=== PATIENT | female | born 1975 | race Caucasian/White ===

== ENCOUNTER 2021-08-19 12:32 | Outpatient (REF) | payer BC, SELFPAY ==
[2021-08-19 19:33] LABS: Abs Immature Grans 0.06 10^3/uL (0.0-0.06); Basophils % 0.3; Eosinophils % 0.7; HCT 37.8 % (36.0-46.0); HGB 12.2 g/dL (11.2-15.7); Immature Grans % 0.4; Lymphocytes % 10.2; MCH 29.4 pg (27.0-33.0); MCHC 32.3 % (32.0-36.0); MCV 91.1 fL (80-95); MPV 9.2 fL (8.0-11.0); Monocytes % 6.1; Neutrophils % 82.3; Nucleated RBC 0 %; Platelet Count 436 10^3/uL (130-400); RBC 4.15 10^6/uL (3.93-5.22); RDW 12.6 % (11.7-14.6); RDW-SD 42.2 fL; WBC 15.15 10^3/uL (4.4-10.8)
[2021-08-19 19:38] LABS: Absolute Basophil Count 0.05 10^3/uL (0.0-0.2); Absolute Eosinophil Count 0.11 10^3/uL (0.0-0.7); Absolute Lymphocyte Count 1.55 10^3/uL (1.2-3.4); Absolute Monocyte Count 0.92 10^3/uL (0.1-0.8); Absolute Neutrophil Count 12.47 10^3/uL (1.2-6.7)
[2021-08-19 19:40] LABS: ESR 33 mm/hr (0-20)
[2021-08-19 20:16] LABS: Anion Gap 9.7 mmol/L (3-11); BUN 13 mg/dL (7-18); CO2 28.3 mmol/L (21.0-32.0); CREATININE 0.8 mg/dL (0.55-1.02); Calcium 9.2 mg/dL (8.5-10.1); Chloride 102 mmol/L (98-107); Glucose 97 mg/dL (74-106); Potassium 4.3 mmol/L (3.5-5.1); Sodium 140 mmol/L (136-145)
[2021-08-20 16:52] LABS: Rheumatoid Factor 9.6 IU/mL (<12.0)
[2021-08-23 11:20] LABS: Lyme Ab w Rflx to Lyme Confirm Positive (Negative)
[2021-08-23 13:46] LABS: Lyme IgG Ab Negative (Negative); Lyme IgM Ab Positive (Negative)
[2021-08-23 16:31] LABS: ANA Interpretation Negative (Negative)
[2021-08-24 00:02] LABS: Anaplasma phagocytophilum Negative (Negative); B. miyamotoi PCR Negative (Negative); Babesia divergens/MO-1 Negative (Negative); Babesia duncani Negative (Negative); Babesia microti Negative (Negative); Ehrlichia chaffeensis Negative (Negative); Ehrlichia ewingii/canis Negative (Negative); Ehrlichia muris eauclairensis Negative (Negative)
== END 2021-08-19 12:33 | disposition home or self-care (01) ==
LOC: NCHCN 12:32
PROVIDERS: Visit Provider Nurse Practitioner Family
DX: M25.59 Pain in other specified joint (principal)
CPT/HCPCS: 80048; 85652; 86617; 87798; 85025; 86038; 86431; 86618

== ENCOUNTER 2023-02-23 10:03 | Outpatient (REF) | payer BC, SELFPAY ==
[2023-02-23 21:05] LABS: ALT 27 U/L (14-59); AST 19 U/L (15-37); Albumin 4.2 g/dL (3.4-5.0); Alkaline Phosphatase 73 U/L (46-116); Anion Gap 10.4 mmol/L (3-11); BUN 22 mg/dL (7-18); Bilirubin, Total 0.4 mg/dL (0.2-1.0); CO2 26.6 mmol/L (21.0-32.0); CREATININE 0.9 mg/dL (0.55-1.02); Calcium 9.1 mg/dL (8.5-10.1); Calculated LDL 180 mg/dL (<100); Chloride 102 mmol/L (98-107); Cholesterol 261 mg/dL (<200); Estimated GFR 78.86 (mL/min/1.73m2); Glucose 97 mg/dL (74-106); HDL Cholesterol 71 mg/dL (40-60); Potassium 4.2 mmol/L (3.5-5.1); Sodium 139 mmol/L (136-145); Triglyceride 53 mg/dL (<150)
[2023-02-23 21:18] LABS: Vitamin D 25 Total 43.5 ng/mL (30-100)
== END 2023-02-23 10:04 | disposition home or self-care (01) ==
LOC: NCHCN 10:03
PROVIDERS: Visit Provider Nurse Practitioner Family
DX: Z00.00 Encounter for general adult medical examination without abnormal findings (principal); Z13.220 Encounter for screening for lipoid disorders; Z13.21 Encounter for screening for nutritional disorder; Z13.29 Encounter for screening for other suspected endocrine disorder; Z13.228 Encounter for screening for other metabolic disorders
CPT/HCPCS: 80053; 80061; 82306; 84443